=== PATIENT | male | born 1995 | race Caucasian/White ===

== ENCOUNTER 2019-01-10 15:32 | Emergency (ER) | payer MEDICAID ==
[~2019-01-10] VITALS: Ht 180.3 cm; Wt 90.4 kg
[2019-01-10] MEDS ORDERED: IBUPROFEN PO (16:37)
--- NOTE | 2019-01-10 16:37 | NUR ---
AND SARAH AT BEDSIDE UPDATING PT WITH POC AT THIS TIME.
[2019-01-10] MEDS ORDERED: KETOROLAC 30 MG/1 ML ONE (17:49)
[2019-01-10] MEDS ORDERED: DIAZEPAM 5 MG TABLET ONE (17:53)
[2019-01-10] MEDS ORDERED: DIAZEPAM 5 MG TABLET PO ONE (18:00)
[2019-01-10] MEDS ORDERED: KETOROLAC 60 MG/2 ML IM ONE (18:00)
[2019-01-10 18:31] VITALS: BP 117/69
== END 2019-01-10 18:34 | disposition home or self-care (01) ==
LOC: ED 18:18
DX: G44.221 Chronic tension-type headache, intractable (principal); F41.1 Generalized anxiety disorder; F32.9 Major depressive disorder, single episode, unspecified
CPT/HCPCS: 70450; 96372; 99284; J1885